=== PATIENT | male | born 1990 | race Caucasian/White ===

== ENCOUNTER → 2017-10-04 | Outpatient (CLI) | payer OTHER ==
[2017-10-04 17:54] LABS: Specimen Source URINE
[2017-10-05 08:53] LABS: Source Urine
== END ==
LOC: LAB 15:08
PROVIDERS: Registered Nurse Community Health
DX: R36.9 Urethral discharge, unspecified (principal)
CPT/HCPCS: 87491; 87591

== ENCOUNTER 2023-05-11 23:36 | Emergency (ER) | payer OTHER ==
[~2023-05-11] VITALS: Ht 188 cm; Wt 90.7 kg
[2023-05-11 23:45] VITALS: BP 128/85
== END 2023-05-12 00:49 | disposition home or self-care (01) ==
LOC: ER 23:36
DX: S61.041A Puncture wound with foreign body of right thumb without damage to nail, initial encounter (principal); W26.8XXA Contact with other sharp object(s), not elsewhere classified, initial encounter; Z88.0 Allergy status to penicillin
CPT/HCPCS: 64450; 73140; 90471; 90715; 99283-25